=== PATIENT | female | born 1955 | race Caucasian/White ===

== ENCOUNTER → 2016-12-07 | Outpatient (CLI) | payer BC ==
[~2016-12-07] VITALS: Ht 160 cm; Wt 60.3 kg
[~2016-12-07] MED LIST: DESV50TA PO; ESTR0.3T PO; NAPR-1070 PO; NF-SKEL800 PO; PANT40TA2 PO; SUCR1TAB36 PO
== END ==
LOC: PREOP 05:32
PROVIDERS: ATTEND Surgery
DX: Z01.818 Encounter for other preprocedural examination (principal); K21.9 Gastro-esophageal reflux disease without esophagitis; K44.9 Diaphragmatic hernia without obstruction or gangrene

== ENCOUNTER 2016-12-14 08:42 | Day surgery (SDC) | payer BC ==
[~2016-12-14 08:42] MED LIST changes: -SUCR1TAB36 PO
[2016-12-14 08:45] VITALS: BP 124/74
[2016-12-14] MEDS ORDERED: HURRICAINE EXT TUBE (BENZOCAINE) XX PRN (08:45)
[2016-12-14] MEDS ORDERED: NS IV 500 ML 500 ML IV PRN (08:45)
[2016-12-14] MEDS ORDERED: LIDOCAINE JELLY 2% (XYLOCAINE) 5 ML TUBE MM PRN (08:45)
[2016-12-14] MEDS ORDERED: LIDOCAINE JELLY 2% (XYLOCAINE) 5 ML TUBE ONE (09:35)
[2016-12-14] MEDS ORDERED: HURRICAINE EXT TUBE (BENZOCAINE) ONE (09:36)
[2016-12-14] MEDS ORDERED: fentaNYL INJECTION 100 MCG/2 ML AMP ONE ×2 (09:36)
[2016-12-14] MEDS ORDERED: MIDAZOLAM 2 MG/2 ML (VERSED) VIAL ONE ×4 (09:36)
--- OUTSIDE RECORDS SUMMARY | 2016-12-14 09:41 | XMS REPORT | Continuity of Care Document ---
Author Author [facility] Organization [facility] Address Unknown Phone Unavailable Allergies Active Description Code Type Severity Reaction Onset Reported/Identified Relationship to Patient Clinical Status Yes Penicillins [id number] Drug Allergy Severe RASH 12/07/2016 Medications Problems Date Dx Coded Attending Type Code Diagnosis Diagnosed By 07/14/2015 MUSHTAQ DE LA ROSA DO Ot F17.210 NICOTINE DEPENDENCE, CIGARETTES, UNCOMPL 07/14/2015 MUSHTAQ DE LA ROSA DO Ot M62.830 MUSCLE SPASM OF BACK 07/15/2015 MUSHTAQ ED LA ROSA DO Ot F17.210 07/15/2015 MUSHTAQ DE LA ROSA DO Ot M62.830 11/14/2016 MYLENE ASHLEY DC Ot 722.4 CERVICAL DISC DEGEN 12/07/2016 DANIELA CHONG MD Ot K21.9 GASTRO-ESOPHAGEAL REFLUX DISEASE WITHOUT 12/07/2016 DANIELA CHONG MD Ot K44.9 DIAPHRAGMATIC HERNIA WITHOUT OBSTRUCTION 12/07/2016 DANIELA CHONG MD Ot Z01.818 ENCOUNTER FOR OTHER PREPROCEDURAL EXAMIN 12/07/2016 DAINELA CHONG MD, Ot K21.9 GASTRO-ESOPHAGEAL REFLUX DISEASE WITHOUT 12/07/2016 DANIELA CHONG MD Ot K44.9 DIAPHRAGMATIC HERNIA WITHOUT OBSTRUCTION 12/07/2016 DANIELA CHONG MD Ot Z01.818 ENCOUNTER FOR OTHER PREPROCEDURAL EXAMIN 12/07/2016 MYLENE ASHLEY DC Ot 722.4 CERVICAL DISC DEGEN 12/07/2016 DANIELA CHONG MD, Ot K21.9 GASTRO-ESOPHAGEAL REFLUX DISEASE WITHOUT 12/07/2016 DANIELA CHONG MD Ot K44.9 DIAPHRAGMATIC HERNIA WITHOUT OBSTRUCTION 12/07/2016 DANIELA CHONG MD Ot Z01.818 ENCOUNTER FOR OTHER PREPROCEDURAL EXAMIN 12/07/2016 DANIELA CHONG MD Ot K21.9 GASTRO-ESOPHAGEAL REFLUX DISEASE WITHOUT 12/07/2016 DANIELA CHONG MD, Ot K44.9 DIAPHRAGMATIC HERNIA WITHOUT OBSTRUCTION 12/07/2016 DANIELA CHONG MD, Ot Z01.818 ENCOUNTER FOR OTHER PREPROCEDURAL EXAMIN 12/07/2016 DANIELA CHONG MD, Ot K21.9 GASTRO-ESOPHAGEAL REFLUX DISEASE WITHOUT 12/07/2016 DANIELA CHONG MD, Ot K44.9 DIAPHRAGMATIC HERNIA WITHOUT OBSTRUCTION 12/07/2016 DANIELA CHONG MD, Ot Z01.818 ENCOUNTER FOR OTHER PREPROCEDURAL EXAMIN Procedures Results Encounters ACCT No. Visit Date/Time Discharge Status Pt. Type Provider Facility Loc./Unit Complaint [id number] 12/07/2016 05:32:00 2016 23:59:59 CLS Outpatient DANIELA CHONG MD [facility] PREOP COLONOSCOPY, EGD [id number] 07/14/2015 09:21:00 2015 12:55:00 DIS Emergency MUSHTAQ DE LA ROSA DO [facility] ER BACK SPASMS/SOA [id number] 02/12/2014 17:02:00 2013 23:59:59 CLS Outpatient MYLENE ASHLEY DC [facility] RAD NECK PAIN [id number] 12/14/2016 10:45:00 PEN Preadmit DANIELA CHONG MD [facility] ENDO SCREENING,REFLUX
--- NOTE | 2016-12-14 09:51 | Conscious Sedation/ASA ---
Conscious Sedation Pre-Proced Time Reviewed: 09:30 ASA Class: 2 Airway Mallampati Classification: (northway appropriate class) I. II. III, IV Lungs Heart ASA score ASA 1: a normal healthy patient ASA 2: a patient with a mild systemic disease (mid diabetes, controlled hypertension, obesity ASA 3: a patient with a severe systemic disease that limits activity (angina , COPD, prior Myocardial infarction) ASA 4: a patient with an incapacitating disease that is a constant threat to life (CHF, renal failure) ASA 5: a moribund patient not expected to survive 24 hrs. (ruptured aneurysm) ASA 6: a declared brain patient whose organs are being harvested. For emergent operations, add the letter E after the classification Grade 2 Sedation Plan: Analgesia, Amnesia, Plan communicated to team members, Discussed options with patient/fam, Discussed risks with patient/fam Note The patient is an appropriate candidate to undergo the planned procedure, sedation, and anesthesia. The patient immediately re-assessed prior to indication. DANIELA CHONG MD Dec 14, 2016 9:51 am
--- NOTE | 2016-12-14 09:52 | Progress Note-Pre Operative ---
Pre-Operative Progress Note H&P Reviewed The H&P was reviewed, patient examined and no changes noted. Date Seen by Provider: Dec 14, 2016 Time Seen by Provider: :30 Date H&P Reviewed: Dec 14, 2016 Time H&P Reviewed: :30 Pre-Operative Diagnosis: GERD, screening colonoscopy DANIELA CHONG MD Dec 14, 2016 9:52 am
[2016-12-14] MEDS: fentaNYL INJECTION 100 MCG/2 ML AMP IVP PRN ×4 (09:54→10:30)
[2016-12-14] MEDS ORDERED: ONDANSETRON 4 MG/2 ML (SDV) Z0FRAN IV PRN (10:00)
[2016-12-14] MEDS ORDERED: HYDROcodone/APAP 5 MG/325 MG (LORTAB) TAB PO PRN (10:00)
[2016-12-14] MEDS ORDERED: morphine INJ 10 MG/ML 1ML (SYR OR VIAL) IV PRN (10:00)
[2016-12-14] MEDS ORDERED: ACETAMINOPHEN 325 MG TABLET/CAPLET (TYLENOL) PO PRN (10:00)
[2016-12-14] MEDS: MIDAZOLAM 2 MG/2 ML (VERSED) VIAL IVP PRN ×4 (10:01→10:28)
--- NOTE | 2016-12-14 11:01 | Progress Note-Post Operative ---
Post-Operative Progess Note Surgeon (s)/Trade Analyst (s) Surgeon DANIELA CHONG MD Trade Analyst: none Pre-Operative Diagnosis GERD, screening colonoscopy Post-Operative Diagnosis reflux esophagitis(class B), moderate HH(3cm), moderate gastritis. chronic stage 2 ext and int hemorrhoids. Procedure & Operative Findings Date of Procedure 12/14/16 Procedure Performed/Findings EGD with bx. Colonoscopy. Anesthesia Type CS Estimated Blood Loss Estimated blood loss (mL): minimal Specimens/Packing Specimens Removed GE jxn, antrum DANIELA CHONG MD Dec 14, 2016 11:01 am
[2016-12-14] MEDS ORDERED: SUCR1TAB36 PO (11:03)
--- NOTE | 2016-12-14 11:04 | Discharge Inst-Surgical ---
D/C Lap Instructions-KIDO New, Converted, or Re-Newed RX: RX on Chart Follow Up Appt in 6 weeks Activity as tolerated High Fiber Diet 25g or more per day Avoid Alcohol, Caffeine, Spicy [place] and Acid foods. Drink 64 fluid oz or more of fluids per day. Symptoms to Report: Fever over 101 degree F, Nausea/Vomiting If any problems/questions: Contact your physician or go to Emergency Room DANIELA CHONG MD Dec 14, 2016 11:04 am
[2016-12-14 11:20] VITALS: BP 115/63
[2016-12-14 11:50] VITALS: BP 117/79
--- NOTE | 2016-12-14 11:57 | OPERATIVE REPORT ---
DATE OF SERVICE: 12/14/2016 ATTENDING PRIMARY CARE PHYSICIAN: Dr. Bernard Jimenez. PREOPERATIVE DIAGNOSIS: 1. Worsening gastroesophageal reflux disease. 2. Screening colonoscopy. POSTOPERATIVE DIAGNOSES: 1. Reflux esophagitis class B. 2. Moderate size hiatal hernia approximately 3 cm in size. 3. Moderate severity gastritis towards the stomach antrum. 4. Chronic stage II external and internal hemorrhoids. PROCEDURE: 1. Esophagogastroduodenoscopy with biopsy. 2. Colonoscopy. ANESTHESIA: Conscious sedation. ESTIMATED BLOOD LOSS: Minimal. FINDINGS: 1. EGD: Reflux esophagitis class B with intrathoracic GE junction and hiatal hernia approximately 3 cm in size. Moderate severity gastritis towards the stomach antrum. There were no formal ulcers, polyps or any neoplasms. Pylorus and duodenum appeared normal. 2. Colonoscopy: Chronic stage II external and internal hemorrhoids, not actively edematous nor inflamed and no bleeding. The remainder of the rectum and colon were normal. There were no polyps or any neoplasms identified. DISPOSITION: The patient tolerated the procedure well. INDICATIONS: The patient is a 61-year-old female in need of a screening colonoscopy. Her last one was approximately 10 years ago and she believes that to be normal. She does have a history of irritable bowel syndrome with mild crampy alternating diarrhea and constipation; however, tolerable. She also has had a longstanding history of gastroesophageal reflux disease and has been on Protonix for the past 2 years, as well as other acid reducers. She reports that despite taking these medications she has had recurrence of reflux type of symptoms. DESCRIPTION OF PROCEDURE: The patient was brought to the endoscopy suite, laid in the left lateral decubitus position with head slightly elevated. After adequate IV pain and sedating medications and conscious sedation anesthesia, the mouthpiece was applied. The endoscope was placed in the mouth, visualizing the pharynx and hypopharyngeal region. Vocal cords, epiglottis and vallecula identified and appeared to be normal. The endoscope was then gently intubated in the esophageal opening, esophagus insufflated. Endoscope was then advanced to the first, second and third portions of the esophagus. At the level of the GE junction there was a reflux esophagitis class B. There were no ulcers or strictures. The GE junction was intrathoracic consistent with a type 1 sliding hiatal hernia. The endoscope was then easily advanced in the stomach. The endoscope retroflexed verifying a hiatal hernia approximately 3 cm in size. There was a moderate severity gastritis more towards the stomach antrum. There were no formal ulcers, polyps or any neoplasms. A biopsy was taken of the stomach antrum with forceps with visualization of good hemostasis. The endoscope was then advanced to the pylorus and the first and second portions of the duodenum which appeared normal. The endoscope was then slowly withdrawn while taking a second look and suctioning of residual air with no additional findings. The patient tolerated the procedure well. We will have her continue with medical management for now and have her continue her Protonix 40 mg daily, as well as add Carafate 1 gram q.i.d. She also needs to proceed with the necessary lifestyle and diet accommodation including smoking cessation as well as avoidance of alcohol and caffeinated beverages as well as spicy, greasy and acidic foods as well as take in small more frequent meals and avoidance of eating at night. If she has continued symptoms despite maximal medical therapy she may be a candidate for a hiatal hernia repair as well as an antireflux procedure. Before this, we would proceed with an esophageal manometry study to rule out any dysmotility disorders. Under the same conscious sedation anesthesia, we then proceeded with the colonoscopy portion of the procedure. A digital rectal examination was performed which revealed chronic stage II external and internal hemorrhoids which were not actually edematous nor inflamed and no bleeding. Normal sphincter tone was felt and there were no palpable masses. The endoscope was then intubated to the anus and the rectum gently insufflated. The endoscope was then advanced to the valves of Alberto in the rectum with no polyps or any neoplasms identified. We then proceeded to the sigmoid colon where no diverticulosis was identified. The endoscope was then advanced to the remainder of the descending, transverse, ascending colon and cecum. These segments were normal. There were no polyps or any neoplasms identified throughout the colon nor rectum. The endoscope was then slowly withdrawn while taking a second look and suctioning of residual air with no additional findings. The patient tolerated the procedure well. We will have her continue with medical management with a high fiber diet with at least 25 grams of fiber per day as well as at least 64 fluid ounces of water daily to promote soft stools on a daily basis. She does not need another colonoscopy for another 10 years. Job ID: [id number] DocumentID: [id number] Dictated Date: 12/14/2016 11:08:49 Braker Passenger Train Date: 12/14/2016 11:56:37 Dictated By: DANIELA CHONG MD
[2016-12-14 12:10] VITALS: BP 117/79
== END 2016-12-14 12:10 | disposition home or self-care (01) ==
LOC: ENDO 08:42
PROVIDERS: ATTEND Surgery
DX: Z12.11 Encounter for screening for malignant neoplasm of colon (principal); K21.0 Gastro-esophageal reflux disease with esophagitis; K64.1 Second degree hemorrhoids; K44.9 Diaphragmatic hernia without obstruction or gangrene; K29.60 Other gastritis without bleeding; Z79.899 Other long term (current) drug therapy; F17.210 Nicotine dependence, cigarettes, uncomplicated
CPT/HCPCS: 88305

== ENCOUNTER → 2018-02-26 | Outpatient (CLI) | payer BC ==
[~2018-02-26] MED LIST changes: +SUCR1TAB36 PO
--- NOTE | 2018-02-26 20:54 | Diagnostic Imaging Report ---
INDICATION: Stepped on leg wrong going upstairs, heard a pop, pain. TECHNIQUE: 3 views of the left knee CORRELATION STUDY: None FINDINGS: There is presence of rather prominent joint effusion in the suprapatellar region. Lucency through the base of the spur superior pole of the patella is noted. Definitive acute fracture does not appear to be suggested. There is significant joint space narrowing of the patellofemoral compartment. Spurring about the distal anterior femur. Sclerosis about the patella. The medial and lateral compartments appear maintained with presence of chondrocalcinosis slightly greater laterally. IMPRESSION: 1. Negative for acute bony abnormality of the knee. There is presence of a sizable joint effusion. Significant narrowing of the patellofemoral compartment. Lucency through suprapatellar spur does not appear to be acute. Given the overall findings, consideration might be given to MRI for further assessment. Dictated by: Dictated on workstation # [id number]
== END ==
LOC: RAD 14:59
PROVIDERS: ATTEND Internal Medicine
DX: S89.92XA Unspecified injury of left lower leg, initial encounter (principal)
CPT/HCPCS: 73562

== ENCOUNTER 2021-10-14 12:57 | Outpatient (RCR) | payer MEDICARE | END 2021-10-21 | disposition home or self-care (01) | PROVIDERS: ATTEND Nurse Practitioner | DX: M54.12 Radiculopathy, cervical region (principal); M54.50 Low back pain, unspecified ==

== ENCOUNTER → 2022-02-18 | Outpatient (CLI) | payer MEDICARE ==
[~2022-02-18] VITALS: Ht 160 cm; Wt 69.0 kg
[~2022-02-18] MED LIST changes: +CATHETER FLUSH 10 ML SYR IVP PRN; +REGADENOSON 0.4 MG/5 ML SYR (LEXISCAN) IV ONE
[2022-02-18 07:52] VITALS: BP 129/74
--- NOTE | 2022-02-18 13:57 | NUCLEAR STRESS TEST ---
REGADENOSON NUCLEAR STRESS Date of procedure: 02/18/2022. Primary care provider: DANI Nj Admitting physician: Bernard Jimenez DO. INDICATION: Tachycardia and abnormal electrocardiogram. BASELINE ELECTROCARDIOGRAM: Sinus rhythm with possible old septal myocardial infarction and nonspecific T wave changes. STRESS TEST PROCEDURE: This is the nuclear portion only of a regadenoson nuclear stress test. Please see separate report for stress test findings. NUCLEAR PROCEDURE: The patient was administered 11 mCi of intravenous technetium 99m Tetrofosmin at rest for the rest images. The patient was subsequently administered 30.3 mCi of intravenous technetium 99m Tetrofosmin at peak stress for the stress images. Following an appropriate wait after each injection, imaging was obtained. The images were subsequently processed and reformatted in the usual views. Gated imaging was obtained. The image quality was adequate with a mild degree of gastrointestinal attenuation artifact. CT attenuation correction was used as a adjunct to standard imaging. Both the corrected and uncorrected images were reviewed for interpretation. NUCLEAR RESULTS: There was normal myocardial perfusion in all segments without evidence of infarction or ischemia. There was normal left ventricular chamber size with an end-diastolic volume of 27 mL and an end-systolic volume of 10 mL. There was no evidence of transient ischemic dilatation. The TID ratio was 1.08. There was normal wall motion in all segments with a calculated ejection fraction of 61%. IMPRESSION: 1. This is the nuclear portion of a regadenoson nuclear stress test. Please see separate report for stress test findings. 2. There was normal myocardial perfusion in all segments without evidence of infarction or ischemia. 3. There was normal wall motion in all segments with a calculated ejection fraction of 61%. Certain portions of this document may have been dictated utilizing voice recognition technology. Inherent to this technology, typographical and grammatical errors may exist. As much as I am diligent to identify and correct these mistakes, some errors may remain in the document. UCHE ORTEGA JR, MD Feb 18, 2022 13:57
== END ==
LOC: CARD 07:00
PROVIDERS: ATTEND Internal Medicine
DX: R00.0 Tachycardia, unspecified (principal); R06.00 Dyspnea, unspecified; R53.83 Other fatigue; R94.31 Abnormal electrocardiogram [ECG] [EKG]
CPT/HCPCS: 78452; 93017; A9502

== ENCOUNTER 2022-03-03 10:02 | Outpatient (CLI) | payer MEDICARE ==
[~2022-03-03] VITALS: Ht 160 cm; Wt 69.5 kg
[~2022-03-03 10:02] MED LIST changes: -CATHETER FLUSH 10 ML SYR IVP PRN; -REGADENOSON 0.4 MG/5 ML SYR (LEXISCAN) IV ONE
[2022-03-03] MEDS ORDERED: DESV100T16 PO (10:24)
== END 2022-03-03 10:37 | disposition home or self-care (01) ==
LOC: PREOP 10:02
PROVIDERS: ATTEND Surgery
DX: Z01.818 Encounter for other preprocedural examination (principal)

== ENCOUNTER 2022-03-09 11:29 | Day surgery (SDC) | payer MEDICARE ==
[~2022-03-09] VITALS: Ht 160 cm; Wt 69.5 kg
[~2022-03-09 11:29] MED LIST changes: +DESV100T16 PO; +LACTATED RINGERS 1,000 ML IV STA
[2022-03-09] MEDS ORDERED: LIDOCAINE JELLY 2% 6 ML SYRINGE MM PRN (11:30)
[2022-03-09] MEDS ORDERED: HURRICAINE EXT TUBE (BENZOCAINE) XX PRN (11:30)
[2022-03-09 11:35] VITALS: BP 133/89
[2022-03-09] MEDS ORDERED: proPOfol 200 MG/20 ML (DIPRIVAN) VIAL IV ONE (12:09)
--- NOTE | 2022-03-09 12:12 | Progress Note-Pre Operative ---
Pre-Operative Progress Note Date of Available H&P: Mar 09, 2022 Date H&P Reviewed: Mar 09, 2022 Time H&P Reviewed: 11:30 History & Physical: No changes noted Pre-Operative Diagnosis: dysphagia, GERD DANIELA CHONG MD Mar 09, 2022 12:12
--- NOTE | 2022-03-09 12:13 | Discharge Inst-Surgical ---
D/C Lap Instructions-CASTILLO Follow Up Activity as tolerated High Fiber Diet 25g or more per day Avoid Alcohol, Caffeine, Spicy [place] and Acid foods. Drink 64 fluid oz or more of fluids per day. Symptoms to Report: Fever over 101 degree F, Nausea/Vomiting If any problems/questions: Contact your physician or go to Emergency Room DANIELA CHONG MD Mar 09, 2022 12:13
[2022-03-09] MEDS ORDERED: ONDANSETRON 4 MG/2 ML (SDV) Z0FRAN IVP PRN (12:15)
[2022-03-09] MEDS ORDERED: ONDANSETRON 4 MG (ZOFRAN) ORAL DISSOLVE TAB PO PRN (12:15)
[2022-03-09 12:40] VITALS: BP 114/73
[2022-03-09 12:55] VITALS: BP 119/87
--- NOTE | 2022-03-09 12:56 | Progress Note-Post Operative ---
Post-Operative Progess Note Surgeon (s)/Marriage Therapist (s) Surgeon DANIELA CHONG MD Marriage Therapist: none Pre-Operative Diagnosis dysphagia, GERD Post-Operative Diagnosis reflux esophagitis(grade C), dist esoph stricture, moderate HH(3-4cm), mod-severe gastritis. Procedure & Operative Findings Date of Procedure 03/09/22 Procedure Performed/Findings EGD with bx and balloon dilatation. Anesthesia Type mac Estimated Blood Loss Estimated blood loss (mL): minimal Specimens/Packing Specimens Removed ge jxn, antrum DANIELA CHONG MD Mar 09, 2022 12:56
[2022-03-09 13:05] VITALS: BP 119/87
--- NOTE | 2022-03-09 14:18 | Anesthesia-General Post-Op ---
MAC Patient Condition Mental Status/LOC: Same as Preop Cardiovascular: Satisfactory Nausea/Vomiting: Absent Respiratory: Satisfactory Pain: Controlled Complications: Absent Post Op Complications Complications None Follow Up Care/Instructions Patient Instructions None needed. Anesthesiology Discharge Order Discharge Order Patient is doing well, no complaints, stable vital signs, no apparent adverse anesthesia problems. No complications reported per nursing. MICKEY RIVAS CRNA Mar 09, 2022 14:18
--- NOTE | 2022-03-09 23:36 | OPERATIVE REPORT ---
DATE OF SERVICE: 03/09/2022 PREOPERATIVE DIAGNOSES: Gastroesophageal reflux disease and dysphagia. POSTOPERATIVE DIAGNOSES: Reflux esophagitis, Chambers grade C with a mild distal esophageal stricture, moderate size hiatal hernia, 3-4 cm in size, moderate to severe gastritis, no distal obstructions. PROCEDURE: EGD with biopsy and balloon dilatation. SURGEON: Daniela Chong MD. ANESTHESIA: Monitored anesthesia care. ESTIMATED BLOOD LOSS: Minimal. FINDINGS: Reflux esophagitis, Chambers grade C with a mild distal esophageal stricture, moderate size hiatal hernia, 3-4 cm in size, moderate to severe gastritis, no distal obstructions. DISPOSITION: The patient tolerated the procedure well. INDICATIONS: The patient is a 67-year-old female known to us. We had done a previous endoscopy on her before. She states now within the past 2 months, she has had intermittent episodes of dysphagia for different types of foods. She also states that her reflux has worsened and she would also had episodes of regurgitation. She does not report any hematemesis, no coffee-ground emesis. DESCRIPTION OF PROCEDURE: The patient was brought to the endoscopy suite and laid in the left lateral decubitus position. After adequate IV pain sedative medications and monitored anesthesia care, the mouthpiece was applied. Endoscope was placed in the mouth to visualize the pharynx hypopharyngeal region. Vocal cords, epiglottis and vallecula identified and appeared to be normal. The endoscope was then gently intubated. The esophageal opening and esophagus was insufflated. The endoscope was then advanced through the first, second and third portion of the esophagus to the level of the GE junction. She had reflux esophagitis, Chambers grade C identified. Distal esophageal stricture was identified and the GE junction was intrathoracic consistent with a hiatal hernia. A biopsy was taken of at the GE junction with forceps of visualization with good hemostasis. The endoscope was then advanced into the stomach and endoscope retroflexed visualizing a moderate-sized hiatal hernia, 3-4 cm in size. There was also moderate to severe gastritis more towards the stomach, antrum and a biopsy was taken of the antrum to rule out H. pylori with visualization with good hemostasis. The endoscope was then advanced through the pylorus and the first and second portions of the duodenum, which appeared normal with no distal obstruction. The balloon was then placed in the stomach and pulled back to the area of the stricture. We then proceeded in a graded stepwise fashion from 2, 4, and then, eventually 6 atmospheres of pressure of 20 mm in luminal diameter with moderate resistance and left this in place for approximately 60 seconds. The balloon was then desufflated and removed with visualization. Good hemostasis as well as no mucosal tears. The endoscope was then slowly withdrawn, taking a second look and suctioning of residual air with no additional findings. The patient tolerated the procedure well. We will recommend the necessary lifestyle and dietary accommodations including small more frequent meals, avoiding eating at night as well as head elevation while lying supine. She also needs to avoid alcohol and caffeinated beverages as well as spicy, greasy and acidic foods. She is currently on Protonix 40 mg daily; however, this does not appear to be effective enough. We will also add omeprazole 40 mg daily to be taken at a separate time during the day. Job ID: [id number] DocumentID: [id number] Dictated Date: 03/09/2022 12:38:31 Tennis Director Date: 03/09/2022 23:34:00 Dictated By: DANIELA CHONG MD
== END 2022-03-09 13:05 | disposition home or self-care (01) ==
LOC: ENDO 11:29
PROVIDERS: ATTEND Surgery
DX: K21.00 Gastro-esophageal reflux disease with esophagitis, without bleeding (principal); K22.2 Esophageal obstruction; K44.9 Diaphragmatic hernia without obstruction or gangrene; K29.70 Gastritis, unspecified, without bleeding; K31.89 Other diseases of stomach and duodenum; Z79.899 Other long term (current) drug therapy; Z87.891 Personal history of nicotine dependence